=== PATIENT | male | born 1945 | race Caucasian/White ===

== ENCOUNTER → 2016-09-19 | Outpatient (CLI) | payer MEDICARE, OTHER ==
--- NOTE | 2016-09-20 08:55 | RAD ---
EXAM DESCRIPTION: XR ABDOMEN 1 VIEW (KUB) CLINICAL HISTORY: Calculus of kidney. FINDINGS/IMPRESSION: No calculus overlies the kidneys, along the course of the ureters or the urinary bladder. Previous CT from 12/28/2015 demonstrated a calculus upper pole right kidney and 3 calculi overlying the lower pole left kidney. These are not seen on this radiograph Multiple phleboliths are seen in the pelvis Bowel-gas pattern is normal. Visualized lung bases are clear Electronically signed by: Ja Sidhu MD 09/20/2016 08:53
== END ==
LOC: RAD 14:37
PROVIDERS: ATTEND Urology
DX: N20.0 Calculus of kidney (principal); I87.8 Other specified disorders of veins

== ENCOUNTER → 2017-05-01 | Outpatient (CLI) | payer MEDICARE, OTHER ==
--- NOTE | 2017-05-02 16:12 | RAD ---
EXAM DESCRIPTION: XR ABDOMEN 1 VIEW (KUB) CLINICAL HISTORY: Calculus of kidney and ureter COMPARISON: September 19, 2016 TECHNIQUE: KUB FINDINGS: There is an unremarkable bowel gas pattern. No obstruction or ileus is seen. No obstruction or ileus is evident. No soft tissue masses or unusual calcifications are noted. Extensive pelvic phleboliths particularly on the left side are unchanged. A distinct calculus overlying the contour of the mid or lower kidneys is not apparent. Possibility that the most medial left pelvic calcification represents a ureteral stone distally cannot be excluded but this is unchanged from prior September study. Age appropriate bony degenerative changes are present. IMPRESSION: Numerous left-sided pelvic calcifications felt to represent phleboliths but the possibility of a left distal ureteral calculus cannot be completely excluded. Electronically signed by: Ja Arguelles MD 05/02/2017 4:10 PM CDT
== END | disposition home or self-care (01) ==
LOC: RAD 15:21
PROVIDERS: ATTEND Urology
DX: N20.0 Calculus of kidney (principal)

== ENCOUNTER → 2017-07-29 | Outpatient (CLI) | payer MEDICARE, OTHER | END | disposition home or self-care (01) | LOC: GMAB 11:02 | PROVIDERS: ATTEND Family Medicine | DX: Z12.5 Encounter for screening for malignant neoplasm of prostate (principal); R53.83 Other fatigue; I10 Essential (primary) hypertension | CPT/HCPCS: 84403; 84443; G0103 ==

== ENCOUNTER → 2017-08-05 | Outpatient (CLI) | payer MEDICARE, OTHER ==
--- NOTE | 2017-08-05 14:24 | CT ---
EXAM DESCRIPTION: Chest w/Contrast CLINICAL HISTORY: 71 years, Male, COUGH COMPARISON: December 28, 2015 CT scan TECHNIQUE: Thin-section axial CT images are obtained during rapid bolus administration of 100 mL of Isovue 300 IV contrast media. Reconstructed MPR images are created and reviewed as well. FINDINGS: Lungs clear. Heart normal size. No infiltrate, effusion, nodule. No adenopathy observed. Nonobstructing nephrolithiasis right kidney with a 7 mm stone upper pole right kidney and a 3 mm stone midportion right kidney. IMPRESSION: Unremarkable appearance of the lungs. Nonobstructing nephrolithiasis This exam was performed according to our departmental dose-optimization program, which includes automated exposure control, adjustment of the mA and/or kV according to patient size and/or use of iterative reconstruction technique. Electronically signed by: Michael Chaudhry MD 08/05/2017 2:23 PM [facility]
== END | disposition home or self-care (01) ==
LOC: CT 08:42
PROVIDERS: ATTEND Family Medicine
DX: R05 Cough (principal); N20.0 Calculus of kidney

== ENCOUNTER → 2018-09-04 | Outpatient (CLI) | payer MEDICARE | LOC: GMAE 10:48 | PROVIDERS: ATTEND Family Medicine | DX: I10 Essential (primary) hypertension (principal); R53.83 Other fatigue; Z12.5 Encounter for screening for malignant neoplasm of prostate | CPT/HCPCS: 84403; 84443; G0103 ==

== ENCOUNTER → 2018-09-10 | Outpatient (CLI) | payer MEDICARE ==
--- NOTE | 2018-09-10 09:48 | US ---
EXAM DESCRIPTION: Aorta: Ultrasound. CLINICAL HISTORY: Z13.89. History of cigarette smoking COMPARISON: Ultrasound duplex carotid evaluation 08/26/2017. TECHNIQUE: Transcutaneous scanning: Two-dimensional and Doppler modes. FINDINGS: Abdominal aorta diameter - Proximal: 2.5 x 1.6 cm. Mid: 2.0 x 1.9 cm. Distal: 2.0 x 1.6 cm. Common Iliac diameter - Right: 11 x 9 mm. Left: 13 x 10 mm. Other: There are sclerotic wall changes.. IMPRESSION: No abdominal aortic aneurysm. Electronically signed by: Jamie Cole MD 09/10/2018 9:47 AM [facility]
== END ==
LOC: US 08:00
PROVIDERS: ATTEND Family Medicine
DX: Z13.89 Encounter for screening for other disorder (principal)

== ENCOUNTER → 2019-05-05 | Outpatient (CLI) | payer MEDICARE ==
--- NOTE | 2019-05-06 08:40 | RAD ---
EXAM DESCRIPTION: KUB CLINICAL HISTORY: 73 years Male, RENAL CALCULUS COMPARISON: CT Abdomen and pelvis 01/06/2019. Abdominal radiographs 05/01/2017. TECHNIQUE: 2 views of the abdomen. IMPRESSION: Nondilated bowel gas pattern. No pathologic calcification overlying the renal shadows or expected course of the ureters. Of note, superior pole of the right kidney may not be included within the image margins. Pelvic phleboliths, unchanged when compared to CT abdomen and pelvis 01/06/2019. Lumbar spondylosis. Moderate right greater than left hip arthropathy. Electronically signed by: Gallo Story MD 05/06/2019 8:38 AM CDT
== END ==
LOC: RAD 08:47
PROVIDERS: ATTEND Urology
DX: N20.0 Calculus of kidney (principal); M47.896 Other spondylosis, lumbar region; I87.8 Other specified disorders of veins

== ENCOUNTER → 2019-11-10 | Outpatient (CLI) | payer MEDICARE | LOC: GMAE 14:13 | PROVIDERS: ATTEND Family Medicine | DX: Z12.5 Encounter for screening for malignant neoplasm of prostate (principal); I10 Essential (primary) hypertension; E78.5 Hyperlipidemia, unspecified | CPT/HCPCS: 84443; G0103 ==

== ENCOUNTER → 2020-01-26 | Outpatient (CLI) | payer MEDICARE, OTHER ==
--- NOTE | 2020-01-27 14:07 | CT ---
Procedure: CT LUNG SCREENING Exam Date: January 26, 2020. Ordering Provider: Mike Thomas Clinical Indication: PERSONAL HISTORY OF TOBACCO DEPENDENCE . 10 year cigarette smoking cessation. 35 pack years. This patient meets eligibility criteria for low-dose CT lung cancer screening. Comparison: Chest CT with contrast July 2017. Baseline Lung screening in this program. Technique: Using a multislice scanner, sequential helical axial imaging was obtained in the thorax, 2.5 mm thickness, 2.5 mm separation, from the level of the thoracic inlet through the lung bases without IV contrast. A low dose protocol was utilized for BMI less than 30: BMI: 28.1. CTDI: 1.76 mGy. 120. kVp. 45 mA. DLP 110 mGy-cm. 2D sagittal and coronal reconstructed images, 6.0 mm thickness, were obtained. This exam was performed according to our departmental dose optimization program which includes use of automated exposure control, adjustment of the mA and/or kV according to patient size and/or use of iterative reconstruction technique. Nodule measurements under 10 mm are given as mean value of 3 axes diameters. FINDINGS: Lungs and large airways: Small interstitial densities bilaterally most likely related to aging. Minimal bilateral blebs in the upper segments of the upper lobes. No abnormal nodules and no masses. No focal infiltrates. Pleura and space: Bilateral apical pleural thickening. Mediastinum and jermaine: evaluation limited by low dose technique and lack of IV contrast. Small lymph nodes in the usual areas. No dominant soft tissue mass. Heart and great vessels: Atherosclerotic calcification in the aortic arch and left main coronary artery. Chest wall, lower neck, axillae: Evaluation also limited by same factors as described above. Negative. Upper abdomen: Evaluation limited by low-dose technique. No free air or free fluid. Questionable gastric small hiatal hernia. Osseous structures: Evaluation limited by low dose MIP technique. Levoscoliosis of the thoracic spine. Multiple levels of anterior endplate spondylosis. 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 Sternomanubrial arthrosis. IMPRESSION: Minimal senescent changes and mild emphysematous changes in the upper lung carias. No abnormal nodules and no masses.. [facility] Best Practice Recommendations: please see below for Lung RADS category and FOLLOW-UP.* *Lung RADS category Category 1 - No nodule or definitely benign nodules (probability of malignancy less than 1%). Follow-up: Continue annual screening with Low Dose Chest CT in 12 months. Electronically signed by: Jamie Cole MD 01/27/2020 2:06 PM CDT
== END ==
LOC: CT 10:00
PROVIDERS: ATTEND Family Medicine
DX: Z87.891 Personal history of nicotine dependence (principal); J43.9 Emphysema, unspecified; R91.8 Other nonspecific abnormal finding of lung field

== ENCOUNTER → 2020-08-31 | Outpatient (CLI) | payer MEDICARE ==
--- NOTE | 2020-09-01 10:49 | RAD ---
EXAM: Abdomen 1 View INDICATION: 74 years Male, CALCULUS OF KIDNEY COMPARISON: Abdominal radiographs 05/05/2019 FINDINGS: 2 images of the abdomen were performed. No radiographically apparent renal or ureteral stones are identified. Pelvic phleboliths are again noted, similar to prior examination. Degenerative changes in the spine and hips. IMPRESSION: No radiographically apparent renal or ureteral stones are identified. Electronically signed by: Nisha Hay MD 09/01/2020 10:[address] [facility]
== END ==
LOC: RAD 14:01
PROVIDERS: ATTEND Urology
DX: N28.9 Disorder of kidney and ureter, unspecified (principal)